=== PATIENT | male | born 1980 ===

== ENCOUNTER 2022-08-19 01:03 | Day surgery (SDC) | payer OTHER, SELFPAY ==
[2022-08-10 14:58] VITALS: BMI 25.1
[2022-08-19 08:00] VITALS: BP 115/86; PULSE 92; RESP 20; TEMP 36.6; O2SAT 96; BMI 21.9
[2022-08-19] MEDS: LACTATED RINGERS 1,000 ML 150 ML IV CONT (08:35)
--- NOTE | 2022-08-19 08:37 | SUR.PREOP ---
PT HERE WITH OFFICERS ISADORA & KATE. PT'S BLOOD SUGAR 62. ASYMPTOMATIC. DR. FLORES AWARE. NO FURTHER ORDERS.
[2022-08-19 08:42] LABS: Glucose Point of Care 62 mg/dl (65-105)
--- NOTE | 2022-08-19 09:07 | P.PNAN_ITS ---
Anes - Initial Pre Proc Eval Procedure: Operation Date: 08/19/22 09:30 Proposed Procedures p Esophagogastroduodenoscopy & Colonoscopy - Lico Stewart MD Date/Time: 08/19/22 09:07 Surgeon: Lico Stewart MD Pre Op Diagnosis: anemia Patient Data Age: 42 Gender: M Height: 1.83 m Weight: 73.3 kg Last Vital Signs Temp 97.8 F 08/19/22 08:00 Pulse 92 08/19/22 08:00 Resp 20 08/19/22 08:00 BP 115/86 08/19/22 08:00 Pulse Ox 96 08/19/22 08:00 O2 Del Method Room Air 08/19/22 08:00 Allergies Allergy/AdvReac Type Severity Reaction Status Date / Time No Known Allergies Allergy Verified 08/19/22 08:10 Home Medications Medication Instructions Recorded Confirmed Type aspirin 81 mg capsule 81 mg PO DAILY 08/10/22 08/19/22 History atorvastatin 10 mg tablet 10 mg PO HS 08/10/22 08/19/22 History lisinopril 2.5 mg tablet 2.5 mg PO DAILY 08/10/22 08/19/22 History metformin 500 mg tablet 500 mg PO BIDWMEAL 08/10/22 08/19/22 History Laboratory Tests 08/19/22 08:34 POC Capillary Glucose 62 mg/dl L mg/dl (65-105) Patient hx anesthesia problems: none Family hx anesthesia problems: none Results Review: All pre-operative results and documents have been reviewed as part of the pre- operative evaluation. Anes - Eval Final PreProcedure Day of Procedure 08/19/22 09:07 Patient weight: normal Heart: regular rate and rhythm Lungs: clear to auscultation Airway: Mallampati scale class II Neurological: alert and oriented Last oral intake: >/= 8 hours ASA classification: III Emergent: no Anesthetic plan: proceed Anesthesia type and monitoring: general GIVS and standard monitoring Results Review: All pre-operative results and documents have been reviewed as part of the pre- operative evaluation. Informed Consent: The patient's anesthetic plan and its attendant risks and benefits were discussed with the patient/family/POA. Questions were solicited and answers provided to the satisfaction of the patient/family/POA.
--- NOTE | 2022-08-19 09:14 | PM.HPGS ---
History of Present Illness History of Present Illness Consent: Risks, benefits, and alternatives have been discussed and questions answered. Patient agrees to proceed with procedure. Chief complaint: anemia Narrative: Mack Garcia is a 42 year old male with anemia but denies abdominal pain or overt gib, never had scopes. Review of Systems Constitutional: Constitutional: Denies headache(s) and Denies weakness Eyes: Eyes: Denies blurry vision ENT: Reports Normal hearing present, Denies headache(s) and Denies neck pain Cardiovascular: Cardiovascular: Denies chest pain and Denies dyspnea Respiratory: Respiratory: Denies dyspnea Gastrointestinal: Gastrointestinal: Reports no additional gastrointestinal complaints Genitourinary: Genitourinary: Denies dysuria Musculoskeletal: Musculoskeletal: Denies neck pain Integumentary/Breasts: Skin/Breast: Denies dry skin Neurologic: Reports Normal hearing present, Denies headache(s) and Denies weakness Psychiatric: Psychiatric: Denies anxiety Endocrine: Endocrine: Denies change in body appearance Hematologic/Lymphatic: Hematologic/Lymphatic: Denies easy bleeding Allergic/Immunologic: Allergic/Immunologic: Denies urticaria PMFSH Past Medical History Medical History (Updated 08/19/22 @ 09:14 by Lico Stewart MD) Iron deficiency anemia Meds Home Medications and Allergies Home Medications Medication Instructions Recorded Confirmed Type aspirin 81 mg capsule 81 mg PO DAILY 08/10/22 08/19/22 History atorvastatin 10 mg tablet 10 mg PO HS 08/10/22 08/19/22 History lisinopril 2.5 mg tablet 2.5 mg PO DAILY 08/10/22 08/19/22 History metformin 500 mg tablet 500 mg PO BIDWMEAL 08/10/22 08/19/22 History Allergies Allergy/AdvReac Type Severity Reaction Status Date / Time No Known Allergies Allergy Verified 08/19/22 08:10 Vital Signs Vital Signs - 24 hr 08/19/22 08:00 Temperature 97.8 F Pulse Rate 92 Respiratory Rate 20 Blood Pressure 115/86 Pulse Oximetry 96 Oxygen Delivery Room Air Exam Const: General: comfortable and no acute distress HENMT: General nose exam: Normal nares present Eyes: General: appearance normal, both eyes and all related structures Neck: Neck: no JVD Resp: Auscultation: clear to auscultation bilaterally Cardio: Rate: regular rate Rhythm: regular rhythm GI: Inspection: non-distended GI Palp: Yes Soft to palpation Skin: General skin exam: normal color Neuro: General: gait normal Speech: normal speech Extrem: General: normal to inspection Psych: Mental Status: mental status grossly normal Assessment and Plan Assessment and plan (1) Iron deficiency anemia: Code(s): D50.9 - Iron deficiency anemia, unspecified Status: Acute Assessment and Plan: egd and colonoscopy to assess if gi blood loss
--- NOTE | 2022-08-19 09:42 | SUR.OPER ---
EGD: Start 927, End 930, Colon: Start 934, End 943
[2022-08-19 09:48] VITALS: BP 96/67; PULSE 72; RESP 34; O2SAT 96
[2022-08-19 09:58] VITALS: BP 105/75; PULSE 74; RESP 22; O2SAT 100
[2022-08-19 10:08] VITALS: BP 105/75; PULSE 67; RESP 21; O2SAT 100
[2022-08-19 10:11] LABS: Glucose Point of Care 82 mg/dl (65-105)
== END 2022-08-19 10:25 | disposition home or self-care (01) ==
PROVIDERS: Visit Provider Internal Medicine Gastroenterology
PROC: 0DJ08ZZ Inspection of Upper Intestinal Tract, Via Natural or Artificial Opening Endoscopic (ICD-10-PCS; CPT 43235; principal; 2022-08-19 09:30)
DX: D50.9 Iron deficiency anemia, unspecified (principal); D36.10 Benign neoplasm of peripheral nerves and autonomic nervous system, unspecified; B96.81 Helicobacter pylori [H. pylori] as the cause of diseases classified elsewhere; Z79.82 Long term (current) use of aspirin; Z79.84 Long term (current) use of oral hypoglycemic drugs
CPT/HCPCS: 45385; 43239; 82948; 88305; J2704; J3010; J7120